=== PATIENT | male | born 1990 | race Two or more races ===

== ENCOUNTER 2022-11-29 20:05 | Emergency (ER) | payer OTHER ==
[~2022-11-29] VITALS: Ht 167.6 cm; Wt 88.5 kg
== END 2022-11-29 22:28 | disposition home or self-care (01) ==
LOC: ER 20:05
DX: M79.672 Pain in left foot (principal)

== ENCOUNTER 2025-01-26 11:50 | Emergency (ER) | payer OTHER ==
[~2025-01-26] VITALS: Ht 167.6 cm; Wt 99.8 kg
[2025-01-26] MEDS ORDERED: TETANUS & DIPHTHERIA TOX,ADULT 0.5 ML VIAL IM ONE (13:15)
[2025-01-26] MEDS ORDERED: DIPHTH,PERTUSS(ACELL),TET VAC 0.5 ML SYRINGE IM ONE (13:17)
== END 2025-01-26 13:53 | disposition home or self-care (01) ==
LOC: ER 12:11
DX: S61.411A Laceration without foreign body of right hand, initial encounter (principal); W26.0XXA Contact with knife, initial encounter; Y93.89 Activity, other specified; Y92.89 Other specified places as the place of occurrence of the external cause; Y99.8 Other external cause status
CPT/HCPCS: 12042; 90471; 90714; J1670